=== PATIENT | male | born 1950 | race Caucasian/White ===

== ENCOUNTER → 2019-11-26 | Day surgery (SDC) | payer MEDICARE, OTHER ==
[~2019-11-26] MED LIST: ATORVASTATIN CA10 MG PO; CALCIUM CARBONATE PO; HYOSCYAMINE 0.125 MG TAB ONE; LEVOTHYROXINE75 MCG PO; MULTIVITAMINS1 EAC7 PO; OMEGA 3 1,0001 EACH PO; PROCARDIA XL30 MG PO; TRIAMCINOLONE A15 G1 TOP; URSODIOL300 MG PO; VALACYCLOVIR500 MG PO; VITAMIN D PO
[2019-11-26 14:05] VITALS: BP 157/77
--- NOTE | 2019-11-26 14:10 | Operative Report ---
DATE OF PROCEDURE: 11/26/2019 SURGEON: Corky Tan MD PROCEDURE: Colonoscopy. INDICATION FOR COLONOSCOPY: Colorectal cancer screening. MEDICATIONS: The patient was done under MAC. Please see anesthesiologist's note. PROCEDURE IN DETAIL: With the patient in left lateral decubitus position, the flexible fiberoptic Olympus colonoscope was inserted into the rectum with ease and advanced all the way to the cecum. It was then withdrawn slowly and the mucosa overlying the cecum, ascending colon, transverse and descending appeared to be within normal limits. Diverticular disease was noted in the sigmoid colon. The rectum appeared to be within normal limits. The scope was then retroflexed into the distal rectum. Small internal hemorrhoids were noted, none of which was actively bleeding. The scope was then straightened out, it was subsequently withdrawn. The patient tolerated the procedure well. IMPRESSION: 1. Diverticulosis. 2. Internal hemorrhoids, none actively bleeding. PLAN: Follow up histology. Initiate high-fiber, low-fat diet. Initiate high-fiber supplement. The patient might benefit from a followup colonoscopy in 10 years. Corky Tan MD [facility] [place] /[id number] cc: Erik Wade MD
== END | disposition home or self-care (01) ==
LOC: OR 10:50
PROVIDERS: ATTEND Internal Medicine Gastroenterology
DX: Z12.11 Encounter for screening for malignant neoplasm of colon (principal); K57.30 Diverticulosis of large intestine without perforation or abscess without bleeding; K64.8 Other hemorrhoids; C84.70 Anaplastic large cell lymphoma, ALK-negative, unspecified site; G47.33 Obstructive sleep apnea (adult) (pediatric); E03.9 Hypothyroidism, unspecified; B15.9 Hepatitis A without hepatic coma; I12.9 Hypertensive chronic kidney disease with stage 1 through stage 4 chronic kidney disease, or unspecified chronic kidney disease; N18.9 Chronic kidney disease, unspecified; R00.1 Bradycardia, unspecified; Z88.2 Allergy status to sulfonamides; Z91.041 Radiographic dye allergy status; Z01.810 Encounter for preprocedural cardiovascular examination; Z01.812 Encounter for preprocedural laboratory examination; Z11.59 Encounter for screening for other viral diseases; Z68.33 Body mass index [BMI] 33.0-33.9, adult
CPT/HCPCS: 87635; 93005; G0121; 45378

== ENCOUNTER → 2020-07-28 | Day surgery (SDC) | payer MEDICARE ==
[~2020-07-28] MED LIST changes: +BUPIVACAINE HCL 0.5% INJ 30 ML VIAL INJ ONE; +CEFAZOLIN SOD 1 GM/NS 50ML 100 ML IV ONE; +DEXAMETHASONE SOD PHOS INJ 4 MG/ML VIAL ONE; +FENTANYL CITRATE/PF 100MCG/2 ML INJ ONE; +FOSAMAX70 MG PO; +HYDROCHLOROTH12.5 MG PO; -HYOSCYAMINE 0.125 MG TAB ONE; +KETOROLAC TROMETHAMINE 30 MG/ML VIAL ONE; +LIDOCAINE HCL 2% JELLY 5 ML TUBE ONE; +LIDOCAINE HCL 2% LOCAL INJ 5 ML SDV VIAL INJ ONE; +MIDAZOLAM HCL 2 MG/2 ML VIAL ONE; +ONDANSETRON HCL INJ 2MG/ML 2ML 2 MG/ML VIAL ONE; +PROPOFOL IV EMULSION 10 MG/ML 20 ML VIAL ONE; +SEVOFLURANE INHAL SOLN 250 ML PEN BTL ONE; +VITAMIN K240 MCG PO
[2020-07-28 10:30] VITALS: BP 134/80
== END | disposition home or self-care (01) ==
LOC: OR 06:33
PROVIDERS: ATTEND Podiatrist Foot Surgery
DX: M20.11 Hallux valgus (acquired), right foot (principal); M19.071 Primary osteoarthritis, right ankle and foot; M25.774 Osteophyte, right foot; G47.33 Obstructive sleep apnea (adult) (pediatric); E03.9 Hypothyroidism, unspecified; K74.5 Biliary cirrhosis, unspecified; I12.9 Hypertensive chronic kidney disease with stage 1 through stage 4 chronic kidney disease, or unspecified chronic kidney disease; N18.9 Chronic kidney disease, unspecified; E78.5 Hyperlipidemia, unspecified; R00.1 Bradycardia, unspecified; Z88.2 Allergy status to sulfonamides; Z91.041 Radiographic dye allergy status; Z01.810 Encounter for preprocedural cardiovascular examination; Z01.812 Encounter for preprocedural laboratory examination; Z01.818 Encounter for other preprocedural examination; Z20.822 Contact with and (suspected) exposure to COVID-19; Z85.72 Personal history of non-Hodgkin lymphomas
CPT/HCPCS: 28289; 71046; 76000; 88305; 88311; 93005; C1713; J0690; J1100; J1885; J2001 ×2; J2250; J2405; J2704; J3010; U0002; 88304

== ENCOUNTER → 2020-10-06 | Outpatient (CLI) | payer MEDICARE ==
[~2020-10-06] MED LIST changes: -BUPIVACAINE HCL 0.5% INJ 30 ML VIAL INJ ONE; -CEFAZOLIN SOD 1 GM/NS 50ML 100 ML IV ONE; -DEXAMETHASONE SOD PHOS INJ 4 MG/ML VIAL ONE; -FENTANYL CITRATE/PF 100MCG/2 ML INJ ONE; -KETOROLAC TROMETHAMINE 30 MG/ML VIAL ONE; -LIDOCAINE HCL 2% JELLY 5 ML TUBE ONE; -LIDOCAINE HCL 2% LOCAL INJ 5 ML SDV VIAL INJ ONE; -MIDAZOLAM HCL 2 MG/2 ML VIAL ONE; -ONDANSETRON HCL INJ 2MG/ML 2ML 2 MG/ML VIAL ONE; -PROPOFOL IV EMULSION 10 MG/ML 20 ML VIAL ONE; -SEVOFLURANE INHAL SOLN 250 ML PEN BTL ONE
== END ==
LOC: CARD 08:22
PROVIDERS: ATTEND Family Medicine
DX: R60.0 Localized edema (principal)
CPT/HCPCS: 93925

== ENCOUNTER 2020-12-22 08:00 | Outpatient (RCR) | payer MEDICARE | END 2020-12-23 | LOC: PT 08:00 | PROVIDERS: ATTEND Specialist | DX: S46.011A Strain of muscle(s) and tendon(s) of the rotator cuff of right shoulder, initial encounter (principal) ==

== ENCOUNTER 2020-12-29 07:58 | Outpatient (RCR) | payer MEDICARE | END 2021-01-23 | LOC: PT 07:58 | PROVIDERS: ATTEND Specialist | DX: S46.011A Strain of muscle(s) and tendon(s) of the rotator cuff of right shoulder, initial encounter (principal) ==

== ENCOUNTER 2021-03-10 20:25 | Emergency (ER) | payer MEDICARE ==
[2021-03-10] MEDS ORDERED: TETANUS/DIPHTHERIA TOX ADULT 0.5 ML SYR IM STA (21:26)
[2021-03-10] MEDS ORDERED: TETANUS/DIPHTHERIA TOX ADULT 0.5 ML SYR ONE (21:38)
== END 2021-03-10 21:45 | disposition home or self-care (01) ==
LOC: FSED 20:42
DX: S61.245A Puncture wound with foreign body of left ring finger without damage to nail, initial encounter (principal); W22.8XXA Striking against or struck by other objects, initial encounter; I10 Essential (primary) hypertension; E78.5 Hyperlipidemia, unspecified; Z85.72 Personal history of non-Hodgkin lymphomas; Z94.84 Stem cells transplant status
CPT/HCPCS: 90471; 90714; 99282

== ENCOUNTER → 2022-01-09 | Outpatient (CLI) | payer MEDICARE | LOC: MRI 09:28 | PROVIDERS: ATTEND Physician Assistant | DX: M23.92 Unspecified internal derangement of left knee (principal) ==

== ENCOUNTER → 2022-02-11 | Day surgery (SDC) | payer MEDICARE ==
[2022-02-07 08:17] LABS: BASOPHILS # (AUTO) 0.1 (0.0-0.1); BASOPHILS % 0.6 % (0.0-1.0); EOSINOPHILS # (AUTO) 0.1 (0.0-0.4); EOSINOPHILS % 1.1 % (0.0-6.0); HEMATOCRIT 50.6 % (38.2-49.6); HEMOGLOBIN 16.4 g/dL (14.0-18.0); LYMPHOCYTES % 18.1 % (18.0-39.1); MEAN CORPUSCULAR HEMOGLOBIN 30.4 pg (28-32); MEAN CORPUSCULAR HGB CONC 32.4 g/dL (31-35); MEAN CORPUSCULAR VOLUME 93.9 fL (81-99); MONOCYTES # (AUTO) 0.7 (0.2-0.8); MONOCYTES % 6.8 % (4.4-11.3); NEUTROPHILS # (AUTO) 7.9 (2.1-6.9); NEUTROPHILS % 72.9 % (38.7-80.0); PLATELET COUNT 267 x10e3/uL (140-360); RED BLOOD COUNT 5.39 x10e6/uL (4.3-5.7); RED CELL DISTRIBUTION WIDTH 14.4 % (11.7-14.4)
[2022-02-07 08:36] LABS: ANION GAP 15.1 mmol/L (8-16); CALCIUM 10.1 mg/dL (8.4-10.2); CREATININE, SERUM 1.51 mg/dL (0.72-1.25); POTASSIUM 4.1 mmol/L (3.5-5.1)
[~2022-02-11] MED LIST changes: +BUPIVACAINE 0.25% 30ML SDV ONE; +DEXAMETHASONE SOD PHOS INJ 4 MG/ML SDV ONE; +FENTANYL CITRATE/PF 100MCG/2 ML INJ ONE; +LIDOCAINE HCL 2% LOCAL INJ 5 ML SDV VIAL INJ ONE; +LOSARTAN POTASS25 MG PO; +MIDAZOLAM HCL 2 MG/2 ML VIAL ONE; +ONDANSETRON HCL INJ 2MG/ML 2ML 2 MG/ML VIAL ONE; +POVIDONE IODINE 0.05% 0.05 % ML PO ONE; +PROPOFOL IV EMULSION 10 MG/ML 20 ML VIAL ONE; +SEVOFLURANE INHAL SOLN 250 ML PEN BTL ONE; +VIT B12 PO
[2022-02-11 11:25] VITALS: BP 134/72
== END | disposition home or self-care (01) ==
LOC: OR 07:21
PROVIDERS: ATTEND Specialist
DX: S83.232A Complex tear of medial meniscus, current injury, left knee, initial encounter (principal); M94.262 Chondromalacia, left knee; M19.90 Unspecified osteoarthritis, unspecified site; G57.80 Other specified mononeuropathies of unspecified lower limb; G47.33 Obstructive sleep apnea (adult) (pediatric); I10 Essential (primary) hypertension; M34.9 Systemic sclerosis, unspecified; R00.1 Bradycardia, unspecified; E03.9 Hypothyroidism, unspecified; C85.90 Non-Hodgkin lymphoma, unspecified, unspecified site; E80.4 Gilbert syndrome; E66.9 Obesity, unspecified; X58.XXXA Exposure to other specified factors, initial encounter; Z88.2 Allergy status to sulfonamides; Z91.041 Radiographic dye allergy status; Z01.810 Encounter for preprocedural cardiovascular examination; Z01.812 Encounter for preprocedural laboratory examination; Z01.818 Encounter for other preprocedural examination; Z79.899 Other long term (current) drug therapy; Z68.35 Body mass index [BMI] 35.0-35.9, adult
CPT/HCPCS: 29881; 36415; 71046; 80048; 85025; 93005; J0690; J1100; J2001; J2250; J2405; J2704; J3010

== ENCOUNTER 2022-04-02 02:59 | Emergency (ER) | payer MEDICARE ==
[~2022-04-02] VITALS: Ht 182.9 cm; Wt 117.9 kg
[~2022-04-02 02:59] MED LIST changes: -BUPIVACAINE 0.25% 30ML SDV ONE; -DEXAMETHASONE SOD PHOS INJ 4 MG/ML SDV ONE; -FENTANYL CITRATE/PF 100MCG/2 ML INJ ONE; -LIDOCAINE HCL 2% LOCAL INJ 5 ML SDV VIAL INJ ONE; -MIDAZOLAM HCL 2 MG/2 ML VIAL ONE; -ONDANSETRON HCL INJ 2MG/ML 2ML 2 MG/ML VIAL ONE; -POVIDONE IODINE 0.05% 0.05 % ML PO ONE; -PROPOFOL IV EMULSION 10 MG/ML 20 ML VIAL ONE; -SEVOFLURANE INHAL SOLN 250 ML PEN BTL ONE
[2022-04-02] MEDS ORDERED: LORAZEPAM 1 MG TAB PO ONE (03:30)
[2022-04-02] MEDS ORDERED: LORAZEPAM 1 MG TAB ONE (03:43)
== END 2022-04-02 03:50 | disposition home or self-care (01) ==
LOC: ER 03:06
DX: F41.9 Anxiety disorder, unspecified (principal)
CPT/HCPCS: 99282

== ENCOUNTER 2022-09-17 07:19 | Observation (INO) | payer MEDICARE ==
[2022-09-16 07:44] LABS: BASOPHILS # (AUTO) 0.1 (0.0-0.1); BASOPHILS % 0.6 % (0.0-1.0); EOSINOPHILS # (AUTO) 0.2 (0.0-0.4); EOSINOPHILS % 2.2 % (0.0-6.0); HEMATOCRIT 49.8 % (38.2-49.6); HEMOGLOBIN 16.5 g/dL (14.0-18.0); LYMPHOCYTES # (AUTO) 1.7 (1.0-3.2); LYMPHOCYTES % 19.4 % (18.0-39.1); MEAN CORPUSCULAR HEMOGLOBIN 30.4 pg (28-32); MEAN CORPUSCULAR HGB CONC 33.1 g/dL (31-35); MEAN CORPUSCULAR VOLUME 91.7 fL (81-99); MONOCYTES # (AUTO) 0.8 (0.2-0.8); MONOCYTES % 8.8 % (4.4-11.3); NEUTROPHILS % 68.4 % (38.7-80.0); PLATELET COUNT 268 x10e3/uL (140-360); RED BLOOD COUNT 5.43 x10e6/uL (4.3-5.7); RED CELL DISTRIBUTION WIDTH 14.6 % (11.7-14.4)
[~2022-09-17] VITALS: Ht 182.9 cm; Wt 120.0 kg
[~2022-09-17 07:19] MED LIST changes: +ARTIFICIAL TEAR15 ML OD; +ATIVAN1 MG PO; +BENADRYL25 M1 PO; +CEFAZOLIN SODIUM 2 GM ONE; +CELECOXIB 200 MG CAP ONE; +DEXAMETHASONE SOD PHOS 10 MG/1 ML VIAL ONE; +GABAPENTIN 300 MG CAP ONE; +LACTATED RINGER'S 1,000 ML ONE; +TESTOSTERONE INJ; +VITAMIN D31 ML
[2022-09-17] MEDS ORDERED: ROPIVACAINE 246.25 MG, EPINEPHRINE HCL 1:1000 1ML 0.5 MG, CLONIDINE HCL 0.08 MG, KETORO... INJ ONE ×5 (08:00)
[2022-09-17] MEDS ORDERED: SODIUM CHLORIDE 0.9% 500ML 500 ML ONE (09:24)
[2022-09-17] MEDS ORDERED: TRANEXAMIC ACID 20 ML ONE (09:24)
[2022-09-17] MEDS ORDERED: Vancomycin IV 500 MG ONE ×2 (09:24→10:32)
[2022-09-17] MEDS ORDERED: ACETAMINOPHEN 1000 MG/100 ML 0 ML IV ONE (10:41)
[2022-09-17] MEDS ORDERED: ACETAMINOPHEN 1000 MG/100 ML 100 ML IV ONE (10:51)
[2022-09-17] MEDS ORDERED: DOCUSATE SODIUM 100 MG CAP PO PRN (11:30)
[2022-09-17] MEDS ORDERED: HYDROCODONE/APAP 5MG-325MG TAB PO PRN (11:30)
[2022-09-17] MEDS ORDERED: DIPHENHYDRAMINE HCL INJ 50 MG/ML VIAL IV PRN (11:30)
[2022-09-17] MEDS ORDERED: ACETAMINOPHEN 650 MG SUPP PR PRN (11:30)
[2022-09-17] MEDS ORDERED: ZOLPIDEM TARTRATE 5 MG TAB PO PRN (11:30)
[2022-09-17] MEDS ORDERED: HYDROCODONE/APAP 7.5MG-325MG 1 EA TAB PO PRN (11:30)
[2022-09-17] MEDS ORDERED: ONDANSETRON HCL INJ 2MG/ML 2ML 2 MG/ML VIAL IV PRN (11:30)
[2022-09-17] MEDS ORDERED: SEVOFLURANE INHAL SOLN 250 ML PEN BTL ONE (12:28)
[2022-09-17] MEDS ORDERED: ESMOLOL HCL 100MG/10ML 10 MG/ML VIAL ONE (12:28)
[2022-09-17] MEDS ORDERED: GLYCOPYRROLATE INJ 0.2 MG/ML VIAL ONE (12:28)
[2022-09-17] MEDS ORDERED: POVIDONE IODINE 0.05% 0.05 % ML PO ONE (12:28)
[2022-09-17] MEDS ORDERED: ONDANSETRON HCL INJ 2MG/ML 2ML 2 MG/ML VIAL ONE (12:28)
[2022-09-17] MEDS ORDERED: PROPOFOL IV EMULSION 10 MG/ML 20 ML VIAL ONE (12:28)
[2022-09-17] MEDS ORDERED: LIDOCAINE HCL 2% LOCAL INJ 5 ML SDV VIAL INJ ONE (12:28)
[2022-09-17] MEDS ORDERED: BUPIVACAINE 0.25% 30ML SDV ONE (13:12)
[2022-09-17] MEDS ORDERED: KETAMINE HCL INJ 50 MG/ML 10 ML VIAL ONE (13:20)
[2022-09-17] MEDS ORDERED: MIDAZOLAM HCL 2 MG/2 ML VIAL ONE ×2 (13:20→13:38)
[2022-09-17] MEDS ORDERED: FENTANYL CITRATE/PF 100MCG/2 ML INJ ONE (13:38)
[2022-09-17 14:50] VITALS: BP 131/72
[2022-09-17] MEDS: SODIUM CHLORIDE 0.9% 1000ML 1,000 ML IV SCH (15:46)
[2022-09-17 15:54] VITALS: BP 131/72
[2022-09-17] MEDS ORDERED: VITAMIN B6100 MG/2.5 PO (15:54)
[2022-09-17 15:57] VITALS: BP 131/72
[2022-09-17] MEDS ORDERED: ASPIRIN81 MG PO (16:36)
[2022-09-17] MEDS: CELECOXIB 100 MG CAP PO SCH (16:52)
[2022-09-17] MEDS: ASPIRIN 325 MG TAB PO SCH (16:52)
[2022-09-17] MEDS ORDERED: ACETAMINOPHEN 1000 MG/100 ML IV PRN (18:00)
[2022-09-17 20:00] VITALS: BP 128/64
[2022-09-18] VITALS (9 sets, daily range): BP systolic 101–117; BP diastolic 53–69
[2022-09-18] MEDS: LEVOTHYROXINE SODIUM 75 MCG TAB PO SCH (05:15)
[2022-09-18] MEDS: SODIUM CHLORIDE 0.9% 1000ML 1,000 ML IV SCH (05:16)
[2022-09-18 06:08] LABS: HEMOGLOBIN 15.6 g/dL (14.0-18.0)
[2022-09-18] MEDS: URSODIOL 250 MG TAB PO SCH ×3 (08:25→21:50)
[2022-09-18] MEDS: MULTIVITAMINS/MINERALS TAB PO SCH (08:26)
[2022-09-18] MEDS: ASPIRIN 325 MG TAB PO SCH ×2 (08:26→17:40)
[2022-09-18] MEDS: LOSARTAN POTASSIUM 25 MG TAB PO SCH (08:27)
[2022-09-18] MEDS: CELECOXIB 100 MG CAP PO SCH ×2 (08:27→17:41)
[2022-09-18] MEDS ORDERED: ONDANSETRON HCL 4 MG ORAL DISINTEGRATING TAB PO PRN (12:30)
[2022-09-18] MEDS ORDERED: ATORVASTATIN 10 MG TAB PO SCH (21:00)
[2022-09-19 00:42] VITALS: BP 122/66
[2022-09-19 04:47] VITALS: BP 121/61
[2022-09-19] MEDS: LEVOTHYROXINE SODIUM 75 MCG TAB PO SCH (06:02)
[2022-09-19 06:19] LABS: HEMATOCRIT 44.5 % (38.2-49.6); HEMOGLOBIN 14.3 g/dL (14.0-18.0)
[2022-09-19 07:29] VITALS: BP 112/67
[2022-09-19 08:27] VITALS: BP 112/67
[2022-09-19] MEDS: ASPIRIN 325 MG TAB PO SCH (09:28)
[2022-09-19] MEDS: MULTIVITAMINS/MINERALS TAB PO SCH (09:29)
[2022-09-19] MEDS: URSODIOL 250 MG TAB PO SCH (09:29)
[2022-09-19] MEDS: CELECOXIB 100 MG CAP PO SCH (09:29)
[2022-09-19] MEDS: LOSARTAN POTASSIUM 25 MG TAB PO SCH (09:29)
[2022-09-19 11:14] VITALS: BP 121/60
== END 2022-09-19 13:11 | disposition home or self-care (01) ==
LOC: OR 07:19 → PACU V 12:21 → MED/SURG3 14:46
PROVIDERS: ADMIT Specialist; ATTEND Specialist
DX: M17.12 Unilateral primary osteoarthritis, left knee (principal); E78.5 Hyperlipidemia, unspecified; E03.9 Hypothyroidism, unspecified; I10 Essential (primary) hypertension; E78.2 Mixed hyperlipidemia; Z01.810 Encounter for preprocedural cardiovascular examination; Z01.812 Encounter for preprocedural laboratory examination; Z01.818 Encounter for other preprocedural examination; Z20.822 Contact with and (suspected) exposure to COVID-19
CPT/HCPCS: 0223U; 36415; 85014; 85018; 85025; 86850; 86900; 86920; 86922; 94799; C1713; C1776; G0378; J0171; J0690; J1100; J1885; J2001; J2250; J2405; J2795; J3370; J7030; J7040

== ENCOUNTER 2022-09-23 18:28 | Observation (INO) | payer MEDICARE ==
[~2022-09-23] VITALS: Ht 182.9 cm; Wt 119.8 kg
[~2022-09-23 18:28] MED LIST changes: +ASPIRIN81 MG PO; -CEFAZOLIN SODIUM 2 GM ONE; -CELECOXIB 200 MG CAP ONE; -DEXAMETHASONE SOD PHOS 10 MG/1 ML VIAL ONE; -GABAPENTIN 300 MG CAP ONE; -LACTATED RINGER'S 1,000 ML ONE; +VITAMIN B6100 MG/2.5 PO
[2022-09-23] MEDS ORDERED: ASPIRIN 81 MG CHEW TAB PO ONE (18:45)
[2022-09-23] MEDS ORDERED: ONDANSETRON HCL INJ 2MG/ML 2ML 2 MG/ML VIAL IV STA (18:50)
[2022-09-23] MEDS ORDERED: Morphine 4mg INJECTION 4 MG/ML INJ IV STA (18:50)
[2022-09-23 19:00] LABS: BASOPHILS # (AUTO) 0.1 (0.0-0.1); BASOPHILS % 0.5 % (0.0-1.0); EOSINOPHILS # (AUTO) 0.1 (0.0-0.4); HEMATOCRIT 48.8 % (38.2-49.6); HEMOGLOBIN 16.7 g/dL (14.0-18.0); LYMPHOCYTES % 13.5 % (18.0-39.1); MEAN CORPUSCULAR HEMOGLOBIN 31.1 pg (28-32); MEAN CORPUSCULAR HGB CONC 34.2 g/dL (31-35); MEAN CORPUSCULAR VOLUME 90.9 fL (81-99); MONOCYTES % 6.5 % (4.4-11.3); NEUTROPHILS # (AUTO) 11.5 (2.1-6.9); NEUTROPHILS % 77.8 % (38.7-80.0); PLATELET COUNT 308 x10e3/uL (140-360); RED BLOOD COUNT 5.37 x10e6/uL (4.3-5.7); RED CELL DISTRIBUTION WIDTH 14.6 % (11.7-14.4)
[2022-09-23] MEDS ORDERED: DIPHENHYDRAMINE HCL INJ 50 MG/ML VIAL IV STA (19:10)
[2022-09-23] MEDS ORDERED: METHYLPREDNISOLONE SOD SUCC 125 MG/2ML VIAL IV STA (19:10)
[2022-09-23 19:15] LABS: ALANINE AMINOTRANSFERASE 59 IU/L (0-55); ALBUMIN 3.4 g/dL (3.5-5.0); ALBUMIN/GLOBULIN RATIO 0.9 (0.8-2.0); ALKALINE PHOSPHATASE 107 IU/L (40-150); ANION GAP 16.8 mmol/L (8-16); BLOOD UREA NITROGEN 16 mg/dL (7-26); BUN/CREATININE RATIO 10 (6-25); CALCIUM 10.5 mg/dL (8.4-10.2); CARBON DIOXIDE 28 mmol/L (22-29); CHLORIDE 98 mmol/L (98-107); CREATINE KINASE 172 IU/L (30-200); CREATININE, SERUM 1.54 mg/dL (0.72-1.25); GLUCOSE 148 mg/dL (74-118); POTASSIUM 3.8 mmol/L (3.5-5.1); SODIUM 139 mmol/L (136-145)
[2022-09-23] MEDS ORDERED: Vancomycin IV 500 MG in SODIUM CHLORIDE 0.9% 100 ML IV STA (20:08)
[2022-09-23] MEDS ORDERED: IOPAMIDOL 370 MG/ML 100 ML INFUS..BTL INJ ONE (20:12)
[2022-09-23] MEDS ORDERED: ONDANSETRON HCL INJ 2MG/ML 2ML 2 MG/ML VIAL IV PRN (22:15)
[2022-09-23] MEDS ORDERED: Morphine 4mg INJECTION 4 MG/ML INJ IV PRN (22:15)
[2022-09-23 22:19] LABS: AMPHETAMINES SCREEN,URINE NEGATIVE (NEGATIVE); BENZODIAZEPINES SCREEN,URINE POSITIVE (NEGATIVE); PHENCYCLIDINE SCREEN,URINE NEGATIVE (NEGATIVE)
[2022-09-23] MEDS: SODIUM CHLORIDE 0.9% 1000ML 1,000 ML IV SCH (23:02)
[2022-09-24] VITALS: BP 140/78
[2022-09-24] MEDS ORDERED: URSODIOL250 MG PO (00:30)
[2022-09-24] MEDS ORDERED: LOSARTAN POTASS25 MG PO (00:30)
[2022-09-24 04:00] VITALS: BP 124/74
[2022-09-24] MEDS ORDERED: DIPHENHYDRAMINE HCL 25 MG CAP PO PRN (04:00)
[2022-09-24] MEDS ORDERED: LORAZEPAM 1 MG TAB PO PRN (04:00)
[2022-09-24 04:37] LABS: BASOPHILS % 0.3 % (0.0-1.0); HEMATOCRIT 48.8 % (38.2-49.6); HEMOGLOBIN 16.4 g/dL (14.0-18.0); LYMPHOCYTES # (AUTO) 1.2 (1.0-3.2); LYMPHOCYTES % 10.2 % (18.0-39.1); MEAN CORPUSCULAR HEMOGLOBIN 30.9 pg (28-32); MEAN CORPUSCULAR HGB CONC 33.6 g/dL (31-35); MEAN CORPUSCULAR VOLUME 92.1 fL (81-99); MONOCYTES # (AUTO) 0.1 (0.2-0.8); MONOCYTES % 1.1 % (4.4-11.3); NEUTROPHILS # (AUTO) 10.7 (2.1-6.9); NEUTROPHILS % 87.8 % (38.7-80.0); PLATELET COUNT 243 x10e3/uL (140-360); RED CELL DISTRIBUTION WIDTH 14.5 % (11.7-14.4)
[2022-09-24 04:57] LABS: ALBUMIN 3.2 g/dL (3.5-5.0); ALBUMIN/GLOBULIN RATIO 0.8 (0.8-2.0); ANION GAP 14.9 mmol/L (8-16); CALCIUM 9.8 mg/dL (8.4-10.2); CREATININE, SERUM 1.48 mg/dL (0.72-1.25); POTASSIUM 4.9 mmol/L (3.5-5.1)
[2022-09-24] MEDS: KETOROLAC TROMETHAMINE 30 MG/ML VIAL IV PRN ×2 (04:57→13:21)
[2022-09-24 05:36] LABS: CREATINE KINASE MB 2.1 ng/mL (0-5.0)
[2022-09-24] MEDS ORDERED: LEVOTHYROXINE SODIUM 75 MCG TAB PO SCH (06:00)
[2022-09-24 07:33] VITALS: BP 115/63
[2022-09-24 08:26] VITALS: BP 115/63
[2022-09-24] MEDS ORDERED: ASPIRIN 81 MG CHEW TAB PO SCH (09:00)
[2022-09-24] MEDS ORDERED: ARTIFICIAL TEARS (OPTH) 15 ML BTL OD SCH (09:00)
[2022-09-24] MEDS ORDERED: MULTIVITAMINS/MINERALS TAB PO SCH (09:00)
[2022-09-24] MEDS ORDERED: LOSARTAN POTASSIUM 25 MG TAB PO SCH (09:00)
[2022-09-24] MEDS: SODIUM CHLORIDE 0.9% 1000ML 1,000 ML IV SCH (09:38)
[2022-09-24 12:13] VITALS: BP 123/62
[2022-09-24] MEDS ORDERED: ATORVASTATIN 10 MG TAB PO SCH (21:00)
== END 2022-09-24 15:06 | disposition home or self-care (01) ==
LOC: ER 19:00 → ERHOLD 22:12 → MED/SURG 23:30
PROVIDERS: ADMIT Internal Medicine; ATTEND Internal Medicine
DX: G89.28 Other chronic postprocedural pain (principal); G47.33 Obstructive sleep apnea (adult) (pediatric); I12.9 Hypertensive chronic kidney disease with stage 1 through stage 4 chronic kidney disease, or unspecified chronic kidney disease; N18.30 Chronic kidney disease, stage 3 unspecified; Z20.822 Contact with and (suspected) exposure to COVID-19; E03.9 Hypothyroidism, unspecified; E78.5 Hyperlipidemia, unspecified
CPT/HCPCS: 36415 ×2; 71045; 71260; 80053 ×2; 80307; 82550 ×2; 82553 ×2; 83605; 83690; 83880; 84484 ×2; 85025 ×2; 87040; 93005; 93971; 99284; G0378 ×2; J1200; J1885; J2270; J2405; J2543 ×2; J2930; J7030 ×2; Q9967; U0002

== ENCOUNTER 2022-11-21 06:54 | Outpatient (RCR) | payer MEDICARE ==
[~2022-11-21 06:54] MED LIST changes: +URSODIOL250 MG PO
== END 2022-11-22 ==
LOC: PT 06:54
PROVIDERS: ATTEND Physician Assistant
DX: Z47.1 Aftercare following joint replacement surgery (principal); Z96.652 Presence of left artificial knee joint; M25.562 Pain in left knee; M62.81 Muscle weakness (generalized); R26.89 Other abnormalities of gait and mobility; M25.662 Stiffness of left knee, not elsewhere classified

== ENCOUNTER 2024-02-10 04:42 | Emergency (ER) | payer MEDICARE ==
[~2024-02-10] VITALS: Ht 182.9 cm; Wt 108.4 kg
[2024-02-10 04:42] VITALS: TEMP 97.8
[2024-02-10 05:19] LABS: BASOPHILS # (AUTO) 0.1 (0.0-0.1); BASOPHILS % 0.6 % (0.0-1.0); EOSINOPHILS # (AUTO) 0.2 (0.0-0.4); EOSINOPHILS % 2.8 % (0.0-6.0); HEMATOCRIT 46.5 % (38.2-49.6); HEMOGLOBIN 15.3 g/dL (14.0-18.0); LYMPHOCYTES # (AUTO) 2.6 (1.0-3.2); LYMPHOCYTES % 29.9 % (18.0-39.1); MEAN CORPUSCULAR HEMOGLOBIN 30.4 pg (28-32); MEAN CORPUSCULAR HGB CONC 32.9 g/dL (31-35); MEAN CORPUSCULAR VOLUME 92.3 fL (81-99); MONOCYTES # (AUTO) 0.8 (0.2-0.8); MONOCYTES % 9.3 % (4.4-11.3); NEUTROPHILS # (AUTO) 4.9 (2.1-6.9); NEUTROPHILS % 56.9 % (38.7-80.0); PLATELET COUNT 263 x10e3/uL (140-360); RED BLOOD COUNT 5.04 x10e6/uL (4.3-5.7); RED CELL DISTRIBUTION WIDTH 13.6 % (11.7-14.4); WHITE BLOOD COUNT 8.64 x10e3/uL (4.8-10.8)
[2024-02-10 05:45] LABS: ALBUMIN/GLOBULIN RATIO 1.3 (0.8-2.0); ANION GAP 14.9 mmol/L (8-16); BILIRUBIN,TOTAL 1.4 mg/dL (0.2-1.2); CALCIUM 10.3 mg/dL (8.4-10.2); CREATININE, SERUM 1.52 mg/dL (0.72-1.25); POTASSIUM 3.9 mmol/L (3.5-5.1)
[2024-02-10 05:51] LABS: TROPONIN I 0.022 ng/mL (0-0.300)
[2024-02-10] MEDS ORDERED: Morphine 4mg INJECTION 4 MG/ML INJ IV PRN (06:00)
[2024-02-10] MEDS ORDERED: ONDANSETRON HCL INJ 2MG/ML 2ML 2 MG/ML VIAL IV PRN (06:00)
[2024-02-10] MEDS ORDERED: SODIUM CHLORIDE 0.9% 1000ML 1,000 ML IV SCH (06:00)
[2024-02-10 07:26] LABS: TROPONIN I 0.016 ng/mL (0-0.300)
[2024-02-10 07:30] VITALS: PULSE 71; RESP 16
[2024-02-10 07:55] VITALS: BP 137/87; PULSE 71; RESP 16; O2SAT 99
== END 2024-02-10 07:55 | disposition home or self-care (01) ==
LOC: ER 04:48
DX: R06.02 Shortness of breath (principal); R07.9 Chest pain, unspecified; I10 Essential (primary) hypertension; E78.5 Hyperlipidemia, unspecified; K76.9 Liver disease, unspecified; Z11.52 Encounter for screening for COVID-19; R94.31 Abnormal electrocardiogram [ECG] [EKG]; Z85.72 Personal history of non-Hodgkin lymphomas
CPT/HCPCS: 36415; 71045; 80053; 82550; 83690; 83880; 84484; 85025; 93005; 99284; U0002